=== PATIENT | male | born 1940 | race Two or more races ===

== ENCOUNTER 2024-11-07 16:55 | Emergency (ER) | payer OTHER ==
[~2024-11-07] VITALS: Ht 165.1 cm; Wt 54.4 kg
[2024-11-07] MEDS ORDERED: COZAAR25 MG PO (17:43)
[2024-11-07] MEDS ORDERED: [UNRECOGNIZED DRUG - OTHER] (17:45)
[2024-11-07 21:26] LABS: BASO % 0.2 % (0.1-1.2); EOS # 0.00 (0.04-0.54); EOS % 0.0 % (0.7-7.0); LYMPH # 0.44 (1.18-3.74); LYMPH % 6.7 % (19.3-53.1); MEAN PLATELET VOLUME 10.30 fl (9.4-12.4); MONO # 0.66 (0.24-0.82); MONO % 10.1 % (4.7-12.5); NEUT # 5.41 (1.56-6.13); NEUT % 82.7 % (34.0-71.1); RED CELL DISTRIBUTION WIDTH 13.8 % (11.6-14.4)
[2024-11-07 21:40] LABS: INR 1.06
[2024-11-07 21:44] LABS: ALT/SGPT 20.0 U/L (12-78); AST/SGOT 18.0 U/L (15-37); BILIRUBIN TOTAL 0.62 mg/dL (0.3-1.2); BUN CREA RATIO 43.0 (7.0-25.0); CREATININE SERUM 0.79 mg/dL (0.70-1.30); GFR 93.22; GLOBULINA 3.9 G/DL (2.4-3.5); GLUCOSE FASTING 153.0 mg/dL (65-100); OSMOLALITY SERUM 288.0 MOSM/KG (275-295)
[2024-11-07] MEDS ORDERED: TRAMADOL HCL 50 MG TABLET PO STA (23:25)
== END 2024-11-08 09:15 | disposition designated cancer center or children's hospital (05) ==
LOC: ER 16:55
PROVIDERS: General Practice
DX: S72.141A Displaced intertrochanteric fracture of right femur, initial encounter for closed fracture (principal); W18.39XA Other fall on same level, initial encounter; Y93.89 Activity, other specified; Y92.89 Other specified places as the place of occurrence of the external cause